=== PATIENT | female | born 1960 | race Caucasian/White ===

== ENCOUNTER 2017-05-29 04:24 | Emergency (ER) | payer OTHER ==
[~2017-05-29] VITALS: Ht 162.6 cm; Wt 91.3 kg
[2017-05-29 04:28] VITALS: TEMP 36.4; Ht 162.6 cm; Wt 91.3 kg
[2017-05-29] MEDS ORDERED: ONDANSETRON INJ 2 MG/ML 2 ML VIAL IV STA (04:43)
[2017-05-29] MEDS ORDERED: SODIUM CHLORIDE 0.9% 1000ML 1,000 ML IV ONE (04:45)
[2017-05-29] MEDS ORDERED: EST1 PO (05:01)
[2017-05-29 05:03] LABS: BASO % 0.4 %; BASO ABS # 0.02 K/uL (0-0.2); COMPLETE YES; EOS % 2.2 %; HEMATOCRIT 45.1 % (37-47); IG% 0.4 %; LYMPH % 28.1 %; LYMPH ABS # 1.56 K/uL (1.2-3.4); MEAN CELL VOLUME 89.3 fL (80-100); MEAN CORPUSCULAR HEMOGLOBIN 30.1 pg (25-34); MEAN CORPUSCULAR HGB CONC 33.7 g/dl (32-36); MEAN PLATELET VOLUME 11.9 fL (7.4-10.4); MONO % 7.2 %; NEUT % 61.7 %; PLATELET COUNT 202 K/uL (130-400); RED BLOOD COUNT 5.05 M/uL (4.2-5.4); WHITE BLOOD COUNT 5.55 K/uL (4.8-10.8)
[2017-05-29 05:21] LABS: BUN/CREATININE RATIO 20.5 (10-20); CALCIUM 9.4 mg/dl (8.5-10.1); CREATININE 0.79 mg/dl (0.60-1.20); POTASSIUM 3.8 mmol/L (3.5-5.1)
[2017-05-29 06:32] LABS: URINE APPEARANCE CLEAR (CLEAR); URINE BILIRUBIN NEG (NEG); URINE COLOR YELLOW; URINE NITRITE NEG (NEG); URINE PH 5.5 (4.5-7.5); URINE SPECIFIC GRAVITY 1.012 (1.000-1.030); UROBILINOGEN NEG (NEG); ZZUR CULT IF INDIC CLEAN CATCH NO
[2017-05-29 06:35] LABS: MANUAL MICROSCOPIC REQUIRED? NO; REVIEW REQ? NO
--- NOTE | 2017-05-29 07:16 | DIAGNOSTIC IMAGING REPORT ---
CT SCAN OF THE ABDOMEN AND PELVIS WITHOUT CONTRAST CLINICAL HISTORY: Left flank pain COMPARISON STUDY: No previous studies for comparison. TECHNIQUE: CT scan of the abdomen and pelvis was performed from the lung bases to the proximal femurs. Images are reviewed in the axial, sagittal, and coronal planes. IV contrast was not administered for this examination. A dose lowering technique was utilized adhering to the principles of ALARA. CT DOSE: 927.33 mGy.cm FINDINGS: Lower chest: There are mild dependent atelectatic changes. Liver: The unenhanced liver is normal in size, contour, and attenuation. There is no intrahepatic biliary ductal dilatation. Gallbladder: Unremarkable. Spleen: Normal in size and attenuation. Pancreas: Unremarkable. Adrenal glands: Unremarkable. Kidneys: No renal, ureteral, or bladder calculi are visualized. Bowel: There are no transition zones indicate bowel obstruction. There is colonic diverticulosis. There is no evidence of acute appendicitis. There is equivocal minimal stranding adjacent the several diverticula at the descending sigmoid junction. The findings are too subtle to be considered definite evidence of acute diverticulitis. Peritoneum: There is no intraperitoneal free air or abdominal ascites. Vasculature: The abdominal aorta is normal in course and caliber. Adenopathy: None. Pelvic viscera: The patient is status post prior uterine surgery or the uterus is atrophic. There are no pathologic adnexal masses identified. Skeletal structures: No destructive osseous lesions are seen. IMPRESSION: 1. No renal, ureteral, or bladder calculi identified 2. No evidence of bowel obstruction. No evidence of free air 3. No evidence of acute appendicitis 4. Moderate diverticulosis. Equivocal minimal stranding adjacent to several diverticula at the descending sigmoid junction. The findings are too subtle to be considered definitive evidence of acute diverticulitis. Clinical follow-up is advocated. Electronically signed by: Doug Noland M.D. 05/29/2017 7:14 AM Dictated Date/Time: 05/29/2017 6:32 AM
[2017-05-29] MEDS ORDERED: ONDANSETRON HOME PACK 4MG OD TAB PO ONE (07:30)
--- NOTE | 2017-05-29 07:35 | EMERGENCY ROOM VISIT NOTE ---
History First contact with patient: 04:31 Chief Complaint: FLANK PAIN Stated Complaint: LEFT SIDE/BACK PAIN History of Present Illness The patient is a 56 year old female who presents to the Emergency Room with complaints of acute onset left-sided back pain that radiates down into her left side groin for about the past 2 hours. The patient states that she was asleep at the time of onset of symptoms, which woke her up. The patient states the initial pain was a 10/10, lasting for roughly 1 hour, and then has slowly improved to his current level which is a 2/10. The patient has not had fever or chills. No chest pain, chest tightness, or shortness of breath. She is with a history of hysterectomy in the past but no other abdominal surgeries. She considers herself otherwise usually healthy. She did have a few episodes of emesis while the pain was at its greatest intensity. She has not had similar symptoms in the past. Review of Systems More than 10 systems were reviewed and otherwise negative with the exception of history of present illness. Past Medical/Surgical History No chronic medical disease Family History No pertinent family history Social History Smoking Status: Never Smoker Housing Status: lives with family Current/Historical Medications Scheduled Estradiol (Estradiol), Unknown Dose PO DAILY Physical Exam Vital Signs Date Time Temp Pulse Resp B/P (MAP) Pulse Ox O2 Delivery O2 Flow Rate FiO2 05/29/17 05:54 76 20 144/85 95 Room Air 05/29/17 04:28 36.4 77 20 151/92 96 Room Air Physical Exam VITALS: Vitals are noted on the nurse's note and reviewed by myself. Vital signs stable. GENERAL: Well-developed, well-nourished, white female who appears mildly uncomfortable on examination. Patient is cooperative with the examination. HEAD: Normocephalic atraumatic. HEART: Regular rate and rhythm without murmurs gallops or rubs. LUNGS: Clear to auscultation bilaterally without wheezes, rales or rhonchi. No retractions or accessory muscle use. ABDOMEN: Positive normal bowel sounds x 4. Soft, nontender, without masses or organomegaly. No guarding or rebound tenderness. No CVA tenderness. MUSCULOSKELETAL: No muscle atrophy, erythema, or edema noted. Full range of motion without joint tenderness in all extremities. Medical Decision & Procedures ER Provider Diagnostic Interpretation: CT SCAN OF THE ABDOMEN AND PELVIS WITHOUT CONTRAST CLINICAL HISTORY: Left flank pain COMPARISON STUDY: No previous studies for comparison. TECHNIQUE: CT scan of the abdomen and pelvis was performed from the lung bases to the proximal femurs. Images are reviewed in the axial, sagittal, and coronal planes. IV contrast was not administered for this examination. A dose lowering technique was utilized adhering to the principles of ALARA. CT DOSE: 927.33 mGy.cm FINDINGS: Lower chest: There are mild dependent atelectatic changes. Liver: The unenhanced liver is normal in size, contour, and attenuation. There is no intrahepatic biliary ductal dilatation. Gallbladder: Unremarkable. Spleen: Normal in size and attenuation. Pancreas: Unremarkable. Adrenal glands: Unremarkable. Kidneys: No renal, ureteral, or bladder calculi are visualized. Bowel: There are no transition zones indicate bowel obstruction. There is colonic diverticulosis. There is no evidence of acute appendicitis. There is equivocal minimal stranding adjacent the several diverticula at the descending sigmoid junction. The findings are too subtle to be considered definite evidence of acute diverticulitis. Peritoneum: There is no intraperitoneal free air or abdominal ascites. Vasculature: The abdominal aorta is normal in course and caliber. Adenopathy: None. Pelvic viscera: The patient is status post prior uterine surgery or the uterus is atrophic. There are no pathologic adnexal masses identified. Skeletal structures: No destructive osseous lesions are seen. IMPRESSION: 1. No renal, ureteral, or bladder calculi identified 2. No evidence of bowel obstruction. No evidence of free air 3. No evidence of acute appendicitis 4. Moderate diverticulosis. Equivocal minimal stranding adjacent to several diverticula at the descending sigmoid junction. The findings are too subtle to be considered definitive evidence of acute diverticulitis. Clinical follow-up is advocated. Laboratory Results 05/29/17 04:50 Red Blood Count 5.05, Mean Corpuscular Volume 89.3, Mean Corpuscular Hemoglobin 30.1, Mean Corpuscular Hemoglobin Concent 33.7, Mean Platelet Volume 11.9, Neutrophils (%) (Auto) 61.7, Lymphocytes (%) (Auto) 28.1, Monocytes (%) (Auto) 7.2, Eosinophils (%) (Auto) 2.2, Basophils (%) (Auto) 0.4, Neutrophils # (Auto) 3.43, Lymphocytes # (Auto) 1.56, Monocytes # (Auto) 0.40, Eosinophils # (Auto) 0.12, Basophils # (Auto) 0.02 05/29/17 04:50 Test 05/29/17 04:50 05/29/17 05:50 White Blood Count 5.55 K/uL (4.8-10.8) Red Blood Count 5.05 M/uL (4.2-5.4) Hemoglobin 15.2 g/dL (12.0-16.0) Hematocrit 45.1 % (37-47) Mean Corpuscular Volume 89.3 fL (80-100) Mean Corpuscular Hemoglobin 30.1 pg (25-34) Mean Corpuscular Hemoglobin Concent 33.7 g/dl (32-36) Platelet Count 202 K/uL (130-400) Mean Platelet Volume 11.9 fL (7.4-10.4) Neutrophils (%) (Auto) 61.7 % Lymphocytes (%) (Auto) 28.1 % Monocytes (%) (Auto) 7.2 % Eosinophils (%) (Auto) 2.2 % Basophils (%) (Auto) 0.4 % Neutrophils # (Auto) 3.43 K/uL (1.4-6.5) Lymphocytes # (Auto) 1.56 K/uL (1.2-3.4) Monocytes # (Auto) 0.40 K/uL (0.11-0.59) Eosinophils # (Auto) 0.12 K/uL (0-0.5) Basophils # (Auto) 0.02 K/uL (0-0.2) RDW Standard Deviation 42.4 fL (36.4-46.3) RDW Coefficient of Variation 13.1 % (11.5-14.5) Immature Granulocyte % (Auto) 0.4 % Immature Granulocyte # (Auto) 0.02 K/uL (0.00-0.02) Anion Gap 3.0 mmol/L (3-11) Est Creatinine Clear Calc Drug Dose 87.1 ml/min Estimated GFR () 97.0 Estimated GFR (Non- 83.7 BUN/Creatinine Ratio 20.5 (10-20) Calcium Level 9.4 mg/dl (8.5-10.1) Total Bilirubin 0.3 mg/dl (0.2-1) Aspartate Amino Transf (AST/SGOT) 19 U/L (15-37) Alanine Aminotransferase (ALT/SGPT) 28 U/L (12-78) Alkaline Phosphatase 106 U/L (45-117) Total Protein 7.8 gm/dl (6.4-8.2) Albumin 3.8 gm/dl (3.4-5.0) Globulin 4.0 gm/dl (2.5-4.0) Albumin/Globulin Ratio 1.0 (0.9-2) Lipase 110 U/L (73-393) Urine Color YELLOW Urine Appearance CLEAR (CLEAR) Urine pH 5.5 (4.5-7.5) Urine Specific [place] 1.012 (1.000-1.030) Urine Protein NEG (NEG) Urine Glucose (UA) NEG (NEG) Urine Ketones NEG (NEG) Urine Occult Blood 2+ (NEG) Urine Nitrite NEG (NEG) Urine Bilirubin NEG (NEG) Urine Urobilinogen NEG (NEG) Urine Leukocyte Esterase NEG (NEG) Urine WBC (Auto) 1-5 /hpf (0-5) Urine RBC (Auto) 0-4 /hpf (0-4) Urine Hyaline Casts (Auto) 1-5 /lpf (0-5) Urine Epithelial Cells (Auto) 10-20 /lpf (0-5) Urine Bacteria (Auto) NEG (NEG) Medications Administered Medications (Trade) Dose Ordered Sig/[place] Route Start Time Stop Time Status Last Admin Dose Admin Sodium Chloride 1,000 ml @ 999 mls/hr Q1H1M ONCE IV 05/29/17 04:45 05/29/17 05:45 DC 05/29/17 04:57 999 MLS/HR Ondansetron HCl (Zofran Inj) 4 mg NOW STAT IV 05/29/17 04:43 05/29/17 04:45 DC 05/29/17 04:57 4 MG ED Course Physical exam and history were performed. Nursing notes, EMR, and Medication List were personally reviewed. Patient appears to have acute onset left flank pain that began about 2 hours ago. The pain was at its maximal intensity for about one hour , and did have associated nausea and vomiting. The patient's symptoms have slowly improved after that initial episode. IV access was established and labs were obtained. The patient was hydrated with normal saline and given IV Zofran. I did offer the patient pain medication, but she declined as she was feeling improved. CT scan was performed. The patient's blood work is as above and was reviewed. She does not have a significantly elevated white blood cell count, anemia, bandemia, or significant electrolyte imbalance. Lipase and transaminases are nondiagnostic. Her urine is without evidence of infection, but does have hematuria, which is of unknown origin. The patient's CAT scan returned as above and does not show evidence of acute intra-abdominal causes such as infection or ureteral calculi. The patient was reevaluated multiple times, and continues to feel well after several hours of emergency care. She did not require additional nausea or pain medication. My clinical suspicion is the patient may have passed the stone as this would explain her one hour worth of pain as well as her hematuria. Patient will be given a home pack of Zofran. She is to use [id number] analgesics and follow with her primary care physician. Her symptoms certainly could represent musculoskeletal or viral etiology, and I did ask her to monitor for evolution of her symptoms. The patient was pleased with this plan of voice understanding. She rated her discomfort a 0/10 at departure. The chart was completed utilizing [employer] Speech Voice Recognition Software. Grammatical errors, random word insertions, pronoun errors, and incomplete sentences are an occasional consequence of this system due to software limitations, ambient noise, and hardware issues. Any formal questions or concerns about the content, text, or information contained within the body of this dictation should be directly addressed to the provider for clarification. . Medical Decision Differential diagnosis: Etiologies such as renal colic, appendicitis, diverticulitis, mesenteric ischemia, aortic pathology, infections, inflammatory bowel disease, PUD, biliary pathology, UTI, as well as others were entertained. Impression Primary Impression: Left flank pain Departure Information Dispostion Home / Self-Care Condition GOOD Referrals Giuseppe Ramírez M.D. (PCP) Forms HOME CARE DOCUMENTATION FORM, IMPORTANT VISIT INFORMATION Patient Instructions My [facility] Additional Instructions You were seen and evaluated today on an emergency basis only. This is not a substitute for, or an effort to provide, complete comprehensive medical care. It is not possible to recognize and treat all injuries or illnesses in a single emergency department visit. For this reason it is recommended that you followup with your primary care physician with any ongoing or persistent symptoms. For baseline pain relief you may alternate ibuprofen and acetaminophen every 4 hours for pain control. Take 600 mg ibuprofen (Advil) and then 4 hours later take 1000 mg acetaminophen (Tylenol). Do not take more than 3000 mg acetaminophen in a single day. Zofran 4 mg ODT: Dissolve 1 tablet every 6 hrs as needed for nausea. You are welcome to return to the emergency department anytime with new, worsening, or concerning symptoms.
[2017-05-29 07:40] VITALS: BP 130/81; PULSE 70; O2SAT 97
== END 2017-05-29 07:43 | disposition home or self-care (01) ==
LOC: C.EDB 04:25
DX: R10.30 Lower abdominal pain, unspecified (principal); Z79.899 Other long term (current) drug therapy